=== PATIENT | male | born 1940 | race Caucasian/White ===

== ENCOUNTER 2016-04-17 08:38 | Day surgery (SDC) | payer MEDICARE ==
[~2016-04-17 08:38] MED LIST: Acetaminophen TAB* 325 MG PO PRN; Buffered Lidocaine 1% SYR 3ML* 3 ML/SYR SYRINGE INTRADERM ONE; Cyclopentolate 1% OPTH.SOL* 2 ML BTL ONE; Flurbiprofen 0.03% OPTH.SOL* 2.5 ML BTL ONE; Lidocaine 1% MPF* 2 ML VIAL ONE; Neomycin/Polymy/Dex OPHTH.OIN* 3.5 GM ONE; Phenylephrine 2.5% OPTH.SOL* 2 ML BTL ONE; Povidone Iodine 5% OPTH* 30 ML BTL ONE; Tetracaine 0.5% OPTH.SOL 4 ML* 1 DROP BTL ONE; acetaZOLAMIDE TAB* 250 MG ONE
[2016-04-17] MEDS ORDERED: Midazolam* 1 MG/ML 5 ML VIAL (5 MG) ONE (09:42)
[2016-04-17] MEDS ORDERED: fentaNYL* 50 MCG/ML 2 ML VIAL (100 MCG VIAL) ONE (09:42)
[2016-04-17] MEDS ORDERED: Metoprolol Tartrate IV* 1 MG/ML 5 ML VIAL ONE (10:06)
[2016-04-17 11:25] VITALS: BP 117/65
--- NOTE | 2016-04-17 22:02 | OP ---
DATE OF OPERATION: 04/17/16 - [facility] DATE OF : 44 SURGEON: Will Storm MD ANESTHESIOLOGIST: Salvatore Palomares MD ANESTHESIA: Monitored anesthesia care. PRE-OP DIAGNOSIS: Cataract, right eye, with astigmatism. POST-OP DIAGNOSES: Cataract, right eye, with astigmatism and floppy iris syndrome. OPERATIVE PROCEDURE: Cataract extraction of the right eye with toric lens placement. IMPLANTS: SN6AT5 16.5 diopter lens to the right eye at 7 degrees. COMPLICATIONS: None. DESCRIPTION OF PROCEDURE: The patient was given phenylephrine 2.5% and cyclopentolate 1% eye drops in the preoperative area. Two markings were placed at the 0 and 180 degrees on the patient's cornea while sitting upright in the preoperative area to assist with toric lens positioning. The patient was brought to the operating room where a time-out was taken to identify the correct patient, site and side of surgery. The patient's right eye was prepped and draped in the usual sterile fashion with 5% Betadine. A second time-out was taken to verify the correct patient, site and side of surgery, and correct lens selection. A lid speculum was placed to the right eye. The corneal markings were again confirmed and a clyde at 7 degrees was made with a Elise degree gauge. A 1-mm paracentesis blade was used to make a clear corneal incision in the supero-temporal position. Preservative-free 1% lidocaine was injected in the anterior chamber. DuoVisc was then injected into the anterior chamber. A 2.75-mm keratome blade was used to make a triplanar incision at the inferotemporal position. A Malyugin ring was inserted for mechanical pupillary dilation due to inadequate pupillary dilation. A cystotome was used to initiate a capsulorrhexis which was completed with Utrata forceps in a continuous and curvilinear manner. Hydrodissection of the lens was then performed with BSS on a cannula. The lens could be spun in the capsular bag. A phacoemulsification handpiece was then used with a zubrmt-syw-jadznmp technique to remove the nucleus in its entirety using 17.02 CDE. The I/A handpiece was then used to remove the residual cortical lens material. During this step, the iris demonstrated floppy iris syndrome but did not cause any complications. DuoVisc was then injected to inflate the capsular bag. The planned SN6AT5 16.5 diopter lens was then inserted in the capsular bag and rotated to 7 degrees. The Malyugin ring was then removed from the eye using a [place] technique. The residual DuoVisc was then removed from the eye with a I/A handpiece. The lens was again confirmed to be at 7 degrees. The corneal incisions were then hydrated and no leaks occurred at physiologic pressure on 20 mmHg per palpation. The lid speculum was then removed and drapes removed. Maxitrol ointment was then placed on the surface of the operative eye. An adhesive patch and shield were then placed on the operative eye. The patient was taken to the postoperative area in stable condition. [id number]/[facility] #: [id number] MTDD
== END 2016-04-17 11:08 | disposition home or self-care (01) ==
LOC: OREAST 08:38
PROVIDERS: ATTEND Student in an Organized Health Care Education/Training Program
DX: H25.11 Age-related nuclear cataract, right eye (principal); I10 Essential (primary) hypertension; F17.210 Nicotine dependence, cigarettes, uncomplicated; I45.4 Nonspecific intraventricular block
CPT/HCPCS: A9270-GY; J2250; J3010; J3490; V2787

== ENCOUNTER 2016-04-24 11:06 | Day surgery (SDC) | payer MEDICARE ==
[2016-04-24] MEDS ORDERED: Midazolam* 1 MG/ML 2 ML VIAL (2 MG) ONE ×2 (12:26→12:44)
[2016-04-24 13:45] VITALS: BP 131/66
--- NOTE | 2016-04-25 06:02 | OP ---
DATE OF OPERATION: 04/24/16 - [facility] DATE OF : 44 SURGEON: Will Storm MD ANESTHESIOLOGIST: Kathie Campa MD ANESTHESIA: Monitored anesthesia care. 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 POST-OP DIAGNOSIS: Cataract of the left eye with floppy iris syndrome. OPERATIVE PROCEDURE: Cataract extraction, left eye. IMPLANTS: SN6AT5 17.0 diopter lens to the left eye at 178 degrees. COMPLICATIONS: None. DESCRIPTION OF PROCEDURE: The patient was given phenylephrine 2.5% and cyclopentolate 1% eyedrops to the preoperative eye in the preoperative area. The patient was sat upright and 2 corneal markings at 0 and 180 degrees were placed to facilitate toric lens placement. The patient was brought to the operating room where a time-out was taken to identify the correct patient, site and side of surgery. The patient's left eye was prepped and draped in the usual sterile fashion with 5% Betadine. A second time-out was taken to verify the correct patient, site and side of surgery, and correct lens selection. A lid speculum was placed to the left eye. The corneal markings were again verified in a measurement of 178 degrees was made on the cornea with a Elise degree gauge. A 1-mm paracentesis blade was used to make a clear corneal incision in the inferotemporal position. Preservative-free 1% lidocaine was injected in the anterior chamber. DuoVisc was then injected into the anterior chamber. A 2.75-mm keratome blade was used to make a triplanar incision at the superotemporal position. A Malyugin ring was inserted to facilitate a mechanical pupillary dilation due to inadequate dilation and floppy iris syndrome. A cystotome was used to initiate a capsulorrhexis, which was completed with Utrata forceps in a continuous and curvilinear manner. Hydrodissection of the lens was then performed with BSS on a cannula. The lens could be spun in the capsular bag. The phacoemulsification handpiece was then used with a hucxdk-cky-gyhbqsa technique to remove the nucleus in its entirety with 18.59 CDE. The I/A handpiece was then used to remove the residual cortical lens material. DuoVisc was then injected to inflate the capsular bag. The planned SN6AT5 17 diopter lens was then injected in the capsular bag. The lens was rotated to 178 degrees. The Malyugin ring was then removed from the anterior chamber using a [place] technique. The residual DuoVisc was then removed from the eye with a I/A handpiece. The lens was again confirmed to be at 178 degrees. The corneal incisions were then hydrated and no leaks occurred at physiologic pressure on 20 mmHg per palpation. The lid speculum was then removed and drapes removed. Maxitrol ointment was then placed on the surface of the operative eye. An adhesive patch and shield were then placed on the operative eye. The patient was taken to the postoperative area in stable condition. [id number]/[facility] #: [id number] DENITA
== END 2016-04-24 13:43 | disposition home or self-care (01) ==
LOC: OREAST 11:06
PROVIDERS: ATTEND Student in an Organized Health Care Education/Training Program
DX: H25.23 Age-related cataract, morgagnian type, bilateral (principal); H21.81 Floppy iris syndrome; I10 Essential (primary) hypertension; J44.9 Chronic obstructive pulmonary disease, unspecified; F17.200 Nicotine dependence, unspecified, uncomplicated; N40.0 Benign prostatic hyperplasia without lower urinary tract symptoms; Z85.51 Personal history of malignant neoplasm of bladder; Z85.89 Personal history of malignant neoplasm of other organs and systems; E78.5 Hyperlipidemia, unspecified; M10.9 Gout, unspecified
CPT/HCPCS: A9270-GY; J2250; V2787

== ENCOUNTER 2016-05-04 12:51 | Emergency (ER) | payer MEDICARE ==
[2016-05-04 13:16] VITALS: BP 153/81
--- NOTE | 2016-05-04 14:49 | RAD ---
HISTORY: Trauma, pain and swelling of first metatarsal COMPARISONS: None VIEWS: 3, Frontal, lateral, and oblique views of the left foot FINDINGS: BONE DENSITY: Normal. BONES: There are calcaneal enthesophytes. JOINTS: There is osteoarthritis of the first MTP joint ALIGNMENT: There is no dislocation. SOFT TISSUES: Unremarkable. OTHER FINDINGS: None. IMPRESSION: DEGENERATIVE CHANGES. NO ACUTE OSSEOUS INJURY. IF SYMPTOMS PERSIST, RECOMMEND REPEAT IMAGING.
--- NOTE | 2016-05-04 15:39 | UC ---
Lower Extremity/Ankle HPI - HPI Summary HPI Summary: THREE DAYS AGO TRIPPED AND HIT LEFT FOOT. NO SYMPTOMS AT THE TIME. YESTERDAY BEGAN HAVING REDNESS AND PAIN AT LEFT GREAT TOE. (PAST MEDICAL HISTORY OF GOUT IN RIGHT GREAT TOE). NO FEVER. - History of Current Complaint Chief Complaint: UCLowerExtremity Stated Complaint: FOOT COMPLAINT Time Seen by Provider: 05/04/16 14:04 Hx Obtained From: Patient Onset/Duration: Sudden Onset, Lasting Days, Still Present, Worse Since - TODAY Severity Initially: Mild Severity Currently: Moderate Pain Intensity: 5 Pain Scale Used: 0-10 Numeric Aggravating Factor(s): Standing, Other - TOUCH Alleviating Factor(s): Rest Able to Bear Weight: Yes - Risk Factors Gout Risk Factors: Age Over 40, Male DVT Risk Factors: Negative Septic Arthritis Risk Factor: Negative - Allergies/Home Medications Allergies/Adverse Reactions: Allergies Allergy/AdvReac Type Severity Reaction Status Date / Time No Known Allergies Allergy Verified 04/24/16 11:32 PMH/Surg Hx/FS Hx/Imm Hx Previously Healthy: Yes Cardiovascular History Of: Reports: Hypertension Denies: Pacemaker/ICD - Surgical History Surgical History: Yes Surgery Procedure, Year, and Place: 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 ankle surgery 2005. back surgery 1999. bladder CA 2008. eye implants 2016 - Family History Known Family History: Positive: Other - GOUT - Social History Lives: With Family Alcohol Use: Daily Alcohol Amount: 2-3/day Substance Use Type: None Substance Use Comment - Amount & Last Used: hydrocodone Smoking Status (MU): Former Smoker Type: Cigarettes Amount Used/How Often: 10 cigarettes/day Have You Smoked in the Last Year: Yes When Did the Patient Quit Smoking/Using Tobacco: one year ago Review of Systems Constitutional: Negative Skin: Rash - LEFT 1ST METATARSAL GREAT TOE ENT: Negative Respiratory: Negative Cardiovascular: Negative Gastrointestinal: Negative Genitourinary: Negative Motor: Negative Neurovascular: Negative Musculoskeletal: Arthralgia - LEFT GREAT TOE, Myalgia Neurological: Negative Psychological: Negative All Other Systems Reviewed And Are Negative: Yes Physical Exam Triage Information Reviewed: Yes Appearance: Well-Appearing, Well-Nourished, Pain Distress - MODERATE Vital Signs: Initial Vital Signs Temp 97.0 F 05/04/16 13:06 Pulse 65 05/04/16 13:06 Resp 16 03/23/17 13:06 BP 153/81 05/04/16 13:06 Pulse Ox 99 05/04/16 13:06 Vital Signs Reviewed: Yes Eye Exam: Normal ENT Exam: Normal ENT: Positive: Normal ENT inspection, Hearing grossly normal, Pharynx normal, TMs normal Dental Exam: Normal Neck exam: Normal Neck: Positive: Supple, Nontender Respiratory Exam: Normal Respiratory: Positive: Chest non-tender, Lungs clear, Normal breath sounds, No respiratory distress Cardiovascular Exam: Normal Cardiovascular: Positive: RRR, No Murmur, Pulses Normal Abdominal Exam: Normal Abdomen Description: Positive: Nontender, No Organomegaly Musculoskeletal: Positive: No Edema, Strength Limited @ - LEFT GREAT TOE, ROM Limited @ - LEFT GREAT TOE Neurological Exam: Normal Psychological Exam: Normal Psychological: Positive: Normal Response To Family Skin: Positive: rashes - ERRETHEMA LEFT GREAT TOE Lower Extremity Course/Dx - Differential Dx/Diagnosis Differential Diagnosis/HQI/PQRI: Cellulitis, Fracture (Closed), Gout, Infection , Septic Arthritis, Sprain, Strain Provider Diagnoses: GOUT LEFT GREAT TOE, FIRST METATARSAL Discharge - Discharge Plan Condition: Stable Disposition: HOME Patient Education Materials: Low Purine Diet (ED), Gout (ED) Referrals: Donato Currie MD [Primary Care Provider] -
== END 2016-05-04 15:07 | disposition home or self-care (01) ==
LOC: UCEAST 12:51
DX: M10.072 Idiopathic gout, left ankle and foot (principal); I10 Essential (primary) hypertension; M25.572 Pain in left ankle and joints of left foot; Z87.891 Personal history of nicotine dependence; Z85.51 Personal history of malignant neoplasm of bladder; Z96.642 Presence of left artificial hip joint
CPT/HCPCS: 99211; G0463

== ENCOUNTER 2017-10-05 13:52 | Emergency (ER) | payer MEDICARE ==
[2017-10-05 14:10] VITALS: BP 170/86
[2017-10-05] MEDS ORDERED: Tetan/Diph/Pertus SYR(Tdap)* 0.5 ML SYR(BOOSTRIX) use SYR IM ONE (14:25)
--- NOTE | 2017-10-05 14:32 | UC ---
Head Injury HPI - HPI Summary HPI Summary: patient tripped and fell on the stairs last night, pain in both great toes, and left knee also hit his head no LOC - History Of Current Complaint Chief Complaint: UCLowerExtremity Stated Complaint: FELL KNEE / TOE INJURY Time Seen by Provider: 10/05/17 14:18 Hx Obtained From: Patient Mechanism Of Injury: trip and fall Onset/Duration: Sudden Onset, Lasting Days - 1 Pain Intensity: 8 Pain Scale Used: 0-10 Numeric Character: Throbbing Aggravating Factor(s): Nothing Alleviating Factor(s): Other - Hydrocodone Associated Signs And Symptoms: Positive: Negative - Allergies/Home Medications Allergies/Adverse Reactions: Allergies Allergy/AdvReac Type Severity Reaction Status Date / Time No Known Allergies Allergy Verified 10/05/17 13:59 PMH/Surg Hx/FS Hx/Imm Hx Previously Healthy: No - Gout Endocrine History: Dyslipidemia Cardiovascular History: Hypertension - Surgical History Surgical History: Yes Surgery Procedure, Year, and Place: 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 ankle surgery 2005. back surgery 1999. bladder CA tumor [id number]. eye implants 2016 - Family History Known Family History: Positive: Other - GOUT - Social History Occupation: Retired Lives: With Family Alcohol Use: Daily Alcohol Amount: 2 glasses wine/ day Substance Use Type: None Substance Use Comment - Amount & Last Used: hydrocodone Smoking Status (MU): Former Smoker Type: Cigarettes Amount Used/How Often: 10 cigarettes/day Have You Smoked in the Last Year: No When Did the Patient Quit Smoking/Using Tobacco: one year ago Review of Systems Constitutional: Negative Skin: Negative, Bruising - both great toes Eyes: Negative ENT: Negative Respiratory: Negative Cardiovascular: Negative Gastrointestinal: Negative Genitourinary: Negative Motor: Negative Neurovascular: Negative Musculoskeletal: Negative, Arthralgia - both great toes and left knee, Edema - both great toes Neurological: Negative Psychological: Negative Is Patient Immunocompromised?: No All Other Systems Reviewed And Are Negative: Yes Physical Exam Triage Information Reviewed: Yes Appearance: Well-Appearing, No Pain Distress, Well-Nourished Vital Signs: Initial Vital Signs Temp 98.9 F 10/05/17 14:01 Pulse 99 10/05/17 14:01 Resp 18 10/05/17 14:01 BP 170/86 10/05/17 14:01 Pulse Ox 100 10/05/17 14:01 Vital Signs Reviewed: Yes Eye Exam: Normal Eyes: Positive: Conjunctiva Clear ENT Exam: Normal ENT: Positive: Normal ENT inspection, Hearing grossly normal. Negative: Trismus , Muffled voice, Hoarse voice Dental Exam: Normal Neck exam: Normal Neck: Positive: Supple, Nontender Respiratory Exam: Normal Respiratory: Positive: Chest non-tender, No respiratory distress, No accessory muscle use Cardiovascular Exam: Normal Cardiovascular: Positive: RRR, Pulses Normal, Brisk Capillary Refill Musculoskeletal Exam: Normal Musculoskeletal: Positive: Strength Intact, ROM Intact, Edema @ - both great toes Neurological Exam: Normal Neurological: Positive: Alert, Muscle Tone Normal Psychological Exam: Normal Skin Exam: Normal Diagnostics - Radiology No standard instances Xray Interpretation: No Acute Changes Radiology Interpretation Completed By: ED Physician, Radiologist - Patient Name : RYAN ROUSE Medical Record#: [id number] Ordering Physician: Emerald [place] NP Acct.#: [id number] : 1940 Age: 77 Sex: M Location: [facility] Exam Date: 10/05/171422 ADM Status: REG ER Order Information: TOE LEFT GREAT Accession Number: [id number] CPT: 62472 HISTORY: injury COMPARISONS: None VIEWS: 3 , Frontal, lateral, and oblique views of the first digit of the left foot FINDINGS: BONE DENSITY: Normal. BONES: There is no displaced fracture. JOINTS: There is osteoarthritis of the first MTP and interphalangeal joint. ALIGNMENT: There is no dislocation. SOFT TISSUES: Unremarkable. OTHER FINDINGS : None. IMPRESSION: NO ACUTE OSSEOUS INJURY. IF SYMPTOMS PERSIST, RECOMMEND REPEAT IMAGING. < Electronically signed by Otoniel Donald MD in OV> 10/05/17 150 Dictated By: Otoniel [place] MD Dictated Date/Time: 10/05/17 1507 Transcribed Date/ Time: 10/05/17 1506 Copy to: CC:Donato Currie MD; Rama Anderson MD; Emerald [place] NP Imaging - [facility] [address] [address] ph ([phone]) ph ([phone]) ph ([phone]) This report is only to be considered final once signed by the Provider(s) as displayed in the "<Electronically Signed by >" field (s). Absence of a signature indicates the report is in a draft status and still needs to be finalized. In the event this document was created by someone other than the signing Provider, the individual initiating the document will be listed in the "Entered by:" or "Dictated by:" adkins. 1 of 1 Patient Name: RYAN ROUSE Medical Record#: [id number] Ordering Physician: Emerald [place] NP Acct.#: [id number] : 1940 Age: 77 Sex: M Location: [facility] Exam Date: 10/05/171422 ADM Status: REG ER Order Information: TOE RIGHT GREAT Accession Number: [id number] CPT: 32613 HISTORY: injury COMPARISONS: None VIEWS: 3 , Frontal, lateral, and oblique views of the first digit of the right foot FINDINGS: BONE DENSITY: Normal. BONES: There is no displaced fracture. JOINTS: There is osteoarthritis of the first MTP and interphalangeal joints ALIGNMENT: There is no dislocation. SOFT TISSUES: Unremarkable. OTHER FINDINGS : None. IMPRESSION: OSTEOARTHRITIS. NO ACUTE OSSEOUS INJURY. IF SYMPTOMS PERSIST, RECOMMEND REPEAT IMAGING. <Electronically signed by Otoniel Donald MD in OV> 1507 Dictated By: Otoniel [place] MD Dictated Date/Time: 10/05/17 150 Transcribed Date/Time: 10/05/17 150 Copy to: CC:Donato Currie MD; Rama Anderson MD; Emerald [place] NP [facility] [address] [address] ph [phone]) ph ([phone]) ph ([phone]) This report is only to be considered final once signed by the Provider(s) as displayed in the "< Electronically Signed by >" field (s). Absence of a signature indicates the report is in a draft status and still needs to be finalized. In the event this document was created by someone other than the signing Provider, the individual initiating the document will be listed in the "Entered by:" or "Dictated by:" adkins. 1 of 1 Patient Name: RYAN ROUSE Medical Record#: [id number] Ordering Physician: Emerald [place] NP Acct.#: [id number] : 1940 Age: 77 Sex: M Location: [facility] Exam Date: 10/05/171423 ADM Status: REG ER Order Information : CT BRAIN WO Accession Number: [id number] CPT: 59401 Indication: Head injury after fall. Unsteady gait. CT of the brain was performed without IV contrast. Ventricular structures are midline. No midline shift is noted. The extra-axial spaces are unremarkable. There is no evidence of intracranial mass or hemorrhage. No other high or low density lesions are identified. Mastoid air cells and paranasal sinuses are otherwise unremarkable. IMPRESSION: No intracranial mass or hemorrhage is noted. <Electronically signed by Albina Mack MD in OV> 1442 Dictated By: Albina Mack MD Dictated Date/Time: 10/05/17 1442 Transcribed Date/Time: 10/05/17 1441 Copy to: CC:Donato Currie MD; Rama Anderson MD; Emerald [place] NP Imaging - [facility] Imaging - [facility] [address] [address] [place] [address] [place] [address] ph [phone]) ph ([phone]) ph ([phone]) This report is only to be considered final once signed by the Provider(s) as displayed in the "<Electronically Signed by >" field (s). Absence of a signature indicates the report is in a draft status and still needs to be finalized. In the event this document was created by someone other than the signing Provider, the individual initiating the document will be listed in the "Entered by:" or "Dictated by:" adkins. Patient Name: RYAN ROUSE Medical Record#: [id number] Ordering Physician: Emerald [place] NP Acct.#: [id number] : 1940 Age: 77 Sex: M Location: [facility] Exam Date: 10/05/17 1424 ADM Status: REG ER Order Information: KNEE LEFT 4+ VWS Accession Number: [id number] CPT: 08711 HISTORY: injury COMPARISONS: None VIEWS: 4 , Frontal, lateral, axial, and oblique views of the left knee FINDINGS: BONE DENSITY: Normal. BONES: There is no displaced fracture. JOINTS: There is mild tricompartmental osteoarthritis. There is no suprapatellar joint effusion or lipohemarthrosis. ALIGNMENT: There is no dislocation. SOFT TISSUES: There is peripheral arterial calcification. OTHER FINDINGS: None. IMPRESSION: 1. MILD OSTEOARTHRITIS. 2. PERIPHERAL ARTERIAL DISEASE. 3. NO ACUTE OSSEOUS INJURY. IF SYMPTOMS PERSIST, RECOMMEND REPEAT IMAGING. <Electronically signed by Otoniel [place] MD in OV> 150 Dictated By: Otoniel [place] MD Dictated Date/Time: 10/05/17 150 Transcribed Date/Time: 10/05/17 150 Copy to: CC:Donato Currie MD; Rama [place] MD; Emerald [place] NP Imaging - [facility] Imaging [facility] [id number] [place] [id number] ph ) ph ([phone]) ph ([phone]) This report is only to be considered final once signed by the Provider(s) as displayed in the "< Electronically Signed by >" field (s). Absence of a signature indicates the report is in a draft status and still needs to be finalized. In the event this document was created by someone other than the signing Provider, the individual initiating the document will be listed in the "Entered by:" or "Dictated by:" adkins. Head Injury Course/Dx - Course Course Of Treatment: rest ice elevation, pain meds as already rx'd follow bp and injuries with pcp - Differential Dx/Diagnosis Provider Diagnoses: bilateral great toes, left knee and head contusion. Elevated blood pressure in poor control Discharge - Sign-Out/Discharge Documenting (check all that apply): Patient Departure All imaging exams completed and their final reports reviewed: Yes - Discharge Plan Condition: Stable Disposition: HOME Patient Education Materials: Contusion in Adults (ED), Foot Contusion (ED), Hypertension (ED) Referrals: Donato Currie MD [Primary Care Provider] - 2 Weeks - Billing Disposition and Condition Condition: STABLE Disposition: Home
--- NOTE | 2017-10-05 14:46 | RAD ---
Indication: Head injury after fall. Unsteady gait. CT of the brain was performed without IV contrast. Ventricular structures are midline. No midline shift is noted. The extra-axial spaces are unremarkable. There is no evidence of intracranial mass or hemorrhage. No other high or low density lesions are identified. Mastoid air cells and paranasal sinuses are otherwise unremarkable. IMPRESSION: No intracranial mass or hemorrhage is noted.
--- NOTE | 2017-10-05 15:09 | RAD ---
HISTORY: injury COMPARISONS: None VIEWS: 4 , Frontal, lateral, axial, and oblique views of the left knee FINDINGS: BONE DENSITY: Normal. BONES: There is no displaced fracture. JOINTS: There is mild tricompartmental osteoarthritis. There is no suprapatellar joint effusion or lipohemarthrosis. ALIGNMENT: There is no dislocation. SOFT TISSUES: There is peripheral arterial calcification. OTHER FINDINGS: None. IMPRESSION: 1. MILD OSTEOARTHRITIS. 2. PERIPHERAL ARTERIAL DISEASE. 3. NO ACUTE OSSEOUS INJURY. IF SYMPTOMS PERSIST, RECOMMEND REPEAT IMAGING.
--- NOTE | 2017-10-05 15:10 | RAD ---
HISTORY: injury COMPARISONS: None VIEWS: 3 , Frontal, lateral, and oblique views of the first digit of the left foot FINDINGS: BONE DENSITY: Normal. BONES: There is no displaced fracture. JOINTS: There is osteoarthritis of the first MTP and interphalangeal joint. ALIGNMENT: There is no dislocation. SOFT TISSUES: Unremarkable. OTHER FINDINGS: None. IMPRESSION: NO ACUTE OSSEOUS INJURY. IF SYMPTOMS PERSIST, RECOMMEND REPEAT IMAGING.
--- NOTE | 2017-10-05 15:11 | RAD ---
HISTORY: injury COMPARISONS: None VIEWS: 3 , Frontal, lateral, and oblique views of the first digit of the right foot FINDINGS: BONE DENSITY: Normal. BONES: There is no displaced fracture. JOINTS: There is osteoarthritis of the first MTP and interphalangeal joints ALIGNMENT: There is no dislocation. SOFT TISSUES: Unremarkable. OTHER FINDINGS: None. IMPRESSION: OSTEOARTHRITIS. NO ACUTE OSSEOUS INJURY. IF SYMPTOMS PERSIST, RECOMMEND REPEAT IMAGING.
== END 2017-10-05 15:51 | disposition home or self-care (01) ==
LOC: UCEAST 13:52
DX: S90.112A Contusion of left great toe without damage to nail, initial encounter (principal); S90.111A Contusion of right great toe without damage to nail, initial encounter; S80.02XA Contusion of left knee, initial encounter; S00.93XA Contusion of unspecified part of head, initial encounter; W01.0XXA Fall on same level from slipping, tripping and stumbling without subsequent striking against object, initial encounter; Y92.9 Unspecified place or not applicable; I10 Essential (primary) hypertension
CPT/HCPCS: 70450; 90471; 90715; 99212; G0463

== ENCOUNTER 2019-01-10 14:12 | Emergency (ER) | payer MEDICARE ==
[2019-01-10 15:10] VITALS: BP 165/76
--- NOTE | 2019-01-10 17:37 | UC ---
Minor Trauma HPI - HPI Summary HPI Summary: 78-year-old male presents with complaints of left thoracic back pain and left chest wall pain. States 2 days ago he was stepping backwards and accidentally tripped over his cat falling backwards and striking his left thoracic back on some cupboard doors. Note some bruising to the area. States was having some mild discomfort in the area of bruising yesterday but today began developing some sharp left-sided chest wall pain. States feels like intermittent spasms. Worsens with movement. He has taken hydrocodoneacetaminophen 5 mg/325 mg 1 tablet with minimal relief in pain. Denies fever, chills, shortness of breath, cough, or any other injury. 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 ankle surgery 2005. back surgery 1999. bladder CA tumor [id number]. eye implants 2016 - Family History Known Family History: Positive: Other - GOUT - Social History Occupation: Retired Lives: With Family Alcohol Use: Weekly Alcohol Amount: 10 Substance Use Type: None Substance Use Comment - Amount & Last Used: hydrocodone Smoking Status (MU): Former Smoker Type: Cigarettes Amount Used/How Often: 10 cigarettes/day Have You Smoked in the Last Year: No When Did the Patient Quit Smoking/Using Tobacco: 10 years Review of Systems All Other Systems Reviewed And Are Negative: Yes Constitutional: Negative: Fever, Chills Skin: Positive: Bruising Respiratory: Positive: Other - Chest wall pain. Negative: Shortness Of Breath, Cough Cardiovascular: Negative: Palpitations Gastrointestinal: Negative: Abdominal Pain, Vomiting, Diarrhea, Nausea Genitourinary: Positive: Negative Musculoskeletal: Positive: Negative Neurological: Positive: Negative Is Patient Immunocompromised?: No Physical Exam - Summary Physical Exam Summary: GENERAL APPEARANCE: Well developed, well nourished, alert and cooperative, and appears to be in no acute distress. HEAD: Atraumatic. Normocephalic. NECK: Neck supple, non-tender. Full ROM. CARDIAC: Normal S1 and S2. No S3, S4 or murmurs. Rhythm is regular. There is no peripheral edema, cyanosis or pallor. Extremities are warm and well perfused. Capillary refill is less than 2 seconds. Peripheral pulses intact. LUNGS: Clear to auscultation without rales, rhonchi, wheezing or diminished breath sounds. Tenderness with palpation to the left lateral chest wall. No crepitus or deformity noted. ABDOMEN: Positive bowel sounds. Soft, nondistended, nontender. No guarding or rebound. No masses or hepatosplenomegally. MUSKULOSKELETAL: ROM intact to all extremities. No joint erythema or tenderness. Normal muscular development. Normal gait. BACK: No spinal deformity or tenderness. Large contusion noted to left thoracic pain. EXTREMITIES: No significant deformity or joint abnormality. No edema. SKIN: Skin normal color, texture and turgor. Triage Information Reviewed: Yes Vital Signs: Initial Vital Signs Temp 98.2 F 01/10/19 15:03 Pulse 69 01/10/19 15:03 Resp 16 01/10/19 15:03 BP 165/76 01/10/19 15:03 Pulse Ox 100 01/10/19 15:03 Vital Signs Reviewed: Yes Images Front/Back of Body, Lg ([place]): 1 - Ecchymosis Diagnostics - Radiology No standard instances Radiology Interpretation Completed By: Radiologist Summary of Radiographic Findings: Order Information: RIBS LT UNI W/PA CH MIN 3 VWS. Indication: Left rib pain. 4 views of left ribs and dual energy PA views demonstrates no fracture. No mediastinal shift is noted. Lung adkins are clear. IMPRESSION: No definite fracture of the left ribs is noted. No pneumothorax is noted. Minor Trauma Course/Dx - Course Course Of Treatment: 78-year-old male presents with complaints of left thoracic back pain and left chest wall pain. States 2 days ago he was stepping backwards and accidentally tripped over his cat falling backwards and striking his left thoracic back on some cupboard doors. Note some bruising to the area. States was having some mild discomfort in the area of bruising yesterday but today began developing some sharp left-sided chest wall pain. States feels like intermittent spasms. Worsens with movement. He has taken hydrocodoneacetaminophen 5 mg/325 mg 1 tablet with minimal relief in pain. Denies fever, chills, shortness of breath, cough, or any other injury. Afebrile. Vital signs stable. Exam was remarkable for a large contusion to the left thoracic back and tenderness with palpation to the left lateral chest wall without crepitus or deformity noted. Bilateral breath sounds were clear. Remainder of exam was unremarkable. Rib x- rays and chest x-ray were normal with no evidence of fracture or pneumothorax. Results were reviewed with the patient. Recommending conservative treatment for a left thoracic back intuition and chest wall pain. He is continued use his pain medications as directed. With the spasmodic type pain I will also provide him with a prescription for cyclobenzaprine 10 mg 1 tablet every 8 hours as needed. We discussed the need for performing deep breathing exercises to prevent pneumonia. He is to follow-up with his primary care provider in 3 days if symptoms are not improving. Anticipatory guidance and warning symptoms were reviewed with the patient. Verbalizes understanding and agrees with plan of care. - Differential Dx/Diagnosis Provider Diagnosis: Contusion of back wall of thorax, Chest wall pain Discharge ED - Sign-Out/Discharge Documenting (check all that apply): Patient Departure All imaging exams completed and their final reports reviewed: Yes - Discharge Plan Condition: Stable Disposition: HOME Prescriptions: Cyclobenzaprine TAB* [Flexeril 10 MG TAB*] 10 mg PO TID PRN #21 tab PRN Reason: Spasms Patient Education Materials: Chest Pain (ED), Rib Contusion (ED) Referrals: Donato Currie MD [Primary Care Provider] - 3 Days (If no improvement in symptoms.) Additional Instructions: The x-ray performed in the clinic today showed no evidence of a rib fracture and your lungs were normal. Apply a heating pad to the affected area for 15-20 minutes at least 4 times a day to help with the pain and to relax the muscles. Continue taking your pain medication as directed. I have provided you with a prescription for a muscle relaxant called cyclobenzaprine (Flexeril) for severe pain or spasm. This medication will cause drowsiness especially if combined with your hydrocodone so do not drive and operate machinery of taking. Make sure you are doing some deep breathing exercises as we discussed every 1-2 hours while awake to help prevent pneumonia. Follow up with primary care provider in 3 days if symptoms do not improve. Seek immediate medical attention in the emergency room if you develop fever greater than 100.5 F, have severe pain not managed with pain medication, become short of breath, or have any worsening of symptoms. - Billing Disposition and Condition Condition: STABLE Disposition: Home
== END 2019-01-10 17:58 | disposition home or self-care (01) ==
LOC: UCEAST 14:12
DX: S20.222A Contusion of left back wall of thorax, initial encounter (principal); R07.89 Other chest pain; M10.9 Gout, unspecified; I10 Essential (primary) hypertension; Z87.891 Personal history of nicotine dependence; W01.0XXA Fall on same level from slipping, tripping and stumbling without subsequent striking against object, initial encounter; Y92.9 Unspecified place or not applicable
CPT/HCPCS: 99212; G0463

== ENCOUNTER 2020-10-16 17:15 | Inpatient (IN) ==
[2020-10-16 18:56] LABS: ABS Eosinophils 0.1 10^3/ul (0-0.6); ABS Lymphocytes 1.3 10^3/ul (1.0-4.8); ABS Monocytes 0.7 10^3/ul (0-0.8); ABS Neutrophils 3.8 10^3/ul (1.5-7.7); ALT 16 U/L (7-52); AST 21 U/L (13-39); Albumin 4.1 g/dL (3.2-5.2); Albumin/Globulin Ratio 1.6 (1-3); Alkaline Phosphatase 66 U/L (35-149); Anion Gap 7 mmol/L (2-11); Blood Urea Nitrogen 6 mg/dL (6-24); CO2 Carbon Dioxide 29 mmol/L (22-32); Calcium 9.2 mg/dL (8.6-10.3); Chloride 103 mmol/L (101-111); EGFR African American 111.5 (>60); EGFR Non-African American 92.2 (>60); Eosinophil % 1.1 %; Globulin 2.5 g/dL (2-4); Glucose 109 mg/dL (70-100); Hematocrit 37 % (42-52); Hemoglobin 12.9 g/dL (14.0-18.0); Lymphocyte % 21.7 %; Mean Corpuscular HGB Conc 35 g/dL (31-36); Mean Corpuscular Hemoglobin 39 pg (27-31); Mean Corpuscular Volume 111 fL (80-94); Mean Platelet Volume 7.3 fL (7.4-10.4); Platelet Count 182 10^3/uL (150-450); Potassium 4.1 mmol/L (3.5-5.0); Red Blood Count 3.34 10^6 /uL (4.18-5.48); Red Cell Distribution Width 13 % (10-15); Sodium 139 mmol/L (135-145); Total Protein 6.6 g/dL (6.4-8.9); White Blood Count 5.9 10^3/uL (3.5-10.8)
[2020-10-16 19:02] LABS: Activated Partial Thrombo Time 26.7 seconds (26.0-38.0); INR 0.95 (0.86-1.15)
[2020-10-16] MEDS ORDERED: Iohexol 300 (CONTRAST) 10 ML SDV IV ONE (19:18)
[2020-10-16 21:04] LABS: Urine Appearance Clear; Urine Bilirubin Negative (Negative); Urine Blood Negative (Negative); Urine Color Straw; Urine Glucose Negative (Negative); Urine Ketones Negative (Negative); Urine Nitrite Negative (Negative); Urine Protein Negative (Negative); Urine Specific Gravity 1.013 (1.002-1.030); Urine Urobilinogen Negative (Negative)
[2020-10-16] MEDS ORDERED: HYDROmorphone 1 MG/1 ML SYRINGE IV SLOW PU ONE (21:42)
[2020-10-16] MEDS: Enoxaparin 40 MG/0.4 ML SYR SUBCUT SCH (23:46)
[2020-10-17] MEDS: HYDROmorphone 0.5 MG/0.5 ML SYRINGE IV SLOW PU PRN (02:10)
[2020-10-17 15:19] LABS: Alcohol, S < 13 mg/dL (<13)
[2020-10-17] MEDS: Enoxaparin 40 MG/0.4 ML SYR SUBCUT SCH (19:31)
[2020-10-18] MEDS: Polyethylene Glycol 3350 17 GM PACKET PO PRN (08:18)
[2020-10-18] MEDS ORDERED: Flu vaccine *QUAD* 2021-22* 0.5 ML SYRINGE IM ONE (09:00)
[2020-10-18] MEDS ORDERED: Albuterol HFA INHALER 8 gm MDI INH PRN (12:59)
[2020-10-18] MEDS: Mometasone/Formoter 100/5 MDI INH SCH ×2 (13:19→19:40)
[2020-10-18] MEDS ORDERED: Magnesium Hydroxide LIQ 30 ML UDC PO ONE (21:21)
[2020-10-18] MEDS ORDERED: Senna TAB 8.6 mg TAB PO ONE (21:21)
[2020-10-18] MEDS: HYDROmorphone 0.5 MG/0.5 ML SYRINGE IV SLOW PU PRN (21:25)
[2020-10-18] MEDS: Enoxaparin 40 MG/0.4 ML SYR SUBCUT SCH (21:26)
[2020-10-19] MEDS: Mometasone/Formoter 100/5 MDI INH SCH ×2 (09:19→19:17)
[2020-10-19] MEDS: HYDROmorphone 0.5 MG/0.5 ML SYRINGE IV SLOW PU PRN (09:34)
[2020-10-19 19:13] LABS: Hematocrit 32 % (42-52); Hemoglobin 11.4 g/dL (14.0-18.0); Mean Corpuscular HGB Conc 35 g/dL (31-36); Mean Corpuscular Hemoglobin 39 pg (27-31); Mean Corpuscular Volume 110 fL (80-94); Mean Platelet Volume 7.2 fL (7.4-10.4); Platelet Count 188 10^3/uL (150-450); Red Blood Count 2.95 10^6 /uL (4.18-5.48); Red Cell Distribution Width 13 % (10-15); White Blood Count 6.3 10^3/uL (3.5-10.8)
[2020-10-19 19:31] LABS: Calcium 8.8 mg/dL (8.6-10.3); Potassium 3.9 mmol/L (3.5-5.0)
[2020-10-19 19:36] LABS: EGFR African American 116.5 (>60); EGFR Non-African American 96.3 (>60)
[2020-10-19] MEDS ORDERED: Senna TAB 8.6 mg TAB PO PRN (20:37)
[2020-10-19] MEDS: Enoxaparin 40 MG/0.4 ML SYR SUBCUT SCH (21:39)
[2020-10-20 05:53] LABS: Urine Appearance Clear; Urine Bilirubin Negative (Negative); Urine Blood 1+ (Negative); Urine Color Yellow; Urine Glucose Negative (Negative); Urine Ketones Trace (Negative); Urine Nitrite Negative (Negative); Urine Protein Negative (Negative); Urine Specific Gravity 1.017 (1.002-1.030); Urine Urobilinogen Negative (Negative)
[2020-10-20 05:57] LABS: Urine Bacteria Absent (Absent); Urine Red Blood Cell Trace(0-2/hpf) (Absent); Urine Squamous Epithelial Cell Present (Absent); Urine White Blood Cell Absent (Absent)
[2020-10-20] MEDS: Mometasone/Formoter 100/5 MDI INH SCH ×2 (07:31→21:19)
[2020-10-20] MEDS: HYDROmorphone 0.5 MG/0.5 ML SYRINGE IV SLOW PU PRN ×2 (08:24→13:36)
[2020-10-20 09:53] LABS: HDL Cholesterol 76.6 mg/dL
[2020-10-20] MEDS: Enoxaparin 40 MG/0.4 ML SYR SUBCUT SCH (20:13)
[2020-10-21 06:22] LABS: Hematocrit 33 % (42-52); Hemoglobin 11.8 g/dL (14.0-18.0); Mean Corpuscular HGB Conc 36 g/dL (31-36); Mean Corpuscular Hemoglobin 40 pg (27-31); Mean Corpuscular Volume 110 fL (80-94); Mean Platelet Volume 7.6 fL (7.4-10.4); Platelet Count 196 10^3/uL (150-450); Red Blood Count 2.96 10^6 /uL (4.18-5.48); Red Cell Distribution Width 13 % (10-15); White Blood Count 5.3 10^3/uL (3.5-10.8)
[2020-10-21 06:24] LABS: Calcium 9.1 mg/dL (8.6-10.3); EGFR African American 181.9 (>60); EGFR Non-African American 150.4 (>60)
[2020-10-21] MEDS: Mometasone/Formoter 100/5 MDI INH SCH ×2 (07:21→20:09)
[2020-10-21] MEDS: Magnesium Hydroxide LIQ 30 ML UDC PO PRN ×2 (08:32→17:53)
[2020-10-21] MEDS: Polyethylene Glycol 3350 17 GM PACKET PO PRN (11:53)
[2020-10-21] MEDS: Enoxaparin 40 MG/0.4 ML SYR SUBCUT SCH (20:13)
[2020-10-22] MEDS: Mometasone/Formoter 100/5 MDI INH SCH (08:17)
[2020-10-22 09:18] VITALS: BP 120/63
== END 2020-10-22 12:12 | disposition home or self-care (01) | DRG 184 ==
LOC: MEDTELE 17:15 → ED 17:15 → SUATTDRO 22:24 → MEDTELE 10-17 00:12 → SUATTDRO 10-18 08:00
PROVIDERS: ADMIT Hospitalist; ATTEND Internal Medicine